=== PATIENT | female | born 1935 | race Caucasian/White ===

== ENCOUNTER 2025-05-21 14:56 | Day surgery (SDC) | payer MEDICARE ==
[2025-05-21] MEDS ORDERED: LIDOCAINE HCL 1% 50 MG/5 ML VL IJ ONE (14:57)
[2025-05-21] MEDS ORDERED: methylPREDNISolone acetate IM ONE (14:57)
[2025-05-21] MEDS ORDERED: BUPIVACAINE 0.5% VIAL IJ ONE (14:57)
--- NOTE | 2025-05-21 19:52 | XRAY ---
Indication: Left shoulder and subacromial bursa injection. Intraoperative fluoroscopy provided for 23 seconds. 2 digital spot image submitted for interpretation demonstrates needle tip projecting over left glenohumeral joint superiorly. 2nd needle tip subacromial. Small amount of contrast injected for needle tip placement. Correlate with intraoperative findings/report.
--- NOTE | 2025-05-22 09:26 | XRAY ---
23 seconds of fluoroscopy was used in surgery for a left intra-articular shoulder and subacromial bursa injection.
== END 2025-05-21 17:35 | disposition home or self-care (01) ==
LOC: SDC-PAIN 14:56
PROVIDERS: ATTEND Psychiatry & Neurology Pain Medicine
DX: M19.012 Primary osteoarthritis, left shoulder (principal); M75.52 Bursitis of left shoulder; E11.9 Type 2 diabetes mellitus without complications